=== PATIENT | female | born 1955 | race African-American/Black ===

== ENCOUNTER 2019-07-14 11:34 | Emergency (ER) | payer OTHER ==
[~2019-07-14] VITALS: Ht 149.9 cm; Wt 105.0 kg
[2019-07-14 13:55] VITALS: BP 93/63
[2019-07-14] MEDS ORDERED: ACETAMINOPHEN 325MG TABLET PO STA (15:40)
[2019-07-14 16:50] LABS: BASOPHILS % 0.2 % (0.0-2.0); EOSINOPHILS % 0.2 % (0.0-5.0); HEMATOCRIT. 39.1 % (36.0-48.0); HEMOGLOBIN. 12.7 g/dL (12.0-16.0); LYMPHOCYTES % 19.1 % (20.0-50.0); MEAN CORPUSCULAR HEMOGLOBIN 27.2 pg (28.0-32.0); MEAN CORPUSCULAR VOLUME 83.3 fL (81.0-99.0); MEAN PLATELET VOLUME 8.4 fl (7.4-10.4); MONOCYTES % 11.8 % (2.0-8.0); NEUTROPHILS % 68.7 % (40.0-76.0); PLATELET 288 x1000/uL (130-400); RED BLOOD CELL COUNT 4.69 mill/uL (4.2-5.4); RED CELL DISTRIBUTION WIDTH 13.3 % (11.6-14.6)
[2019-07-14 16:54] LABS: CHLORIDE 101 mEq/L (98-107)
== END 2019-07-14 19:00 | disposition left against medical advice (07) ==
LOC: ER 12:13
DX: R50.9 Fever, unspecified (principal); R42 Dizziness and giddiness
CPT/HCPCS: 36415; 71045; 80053; 83605; 84484; 85025; 87804; 99284

== ENCOUNTER 2023-05-02 19:58 | Emergency (ER) | payer MEDICARE ==
[~2023-05-02] VITALS: Ht 137.2 cm; Wt 95.1 kg
[~2023-05-02 19:58] MED LIST: ASPI-1497 PO; GABA-529 PO; METO25TA6 PO
[2023-05-02 20:11] VITALS: BP 143/93; PULSE 88; RESP 16; TEMP 97.9; O2SAT 97
[2023-05-02] MEDS ORDERED: NAPR-1176 MT (20:30)
== END 2023-05-02 20:40 | disposition home or self-care (01) ==
LOC: ER 19:58
DX: Z04.3 Encounter for examination and observation following other accident (principal); I10 Essential (primary) hypertension; Z88.0 Allergy status to penicillin; W19.XXXA Unspecified fall, initial encounter; Y93.89 Activity, other specified; Y92.89 Other specified places as the place of occurrence of the external cause; Y99.8 Other external cause status
CPT/HCPCS: 99282